=== PATIENT | male | born 1965 | race Caucasian/White ===

== ENCOUNTER 2016-09-29 10:16 | Day surgery (SDC) | payer OTHER ==
[2016-09-29] VITALS (12 sets, daily range): BP systolic 123–143; BP diastolic 77–92; PULSE 57–76; RESP 14–22; O2SAT 94–100
[~2016-09-29] VITALS: Ht 180.3 cm; Wt 84.1 kg
[~2016-09-29 10:16] MED LIST: CeFAZolin 2 Gm/50 mL D5W IV Premix IV ONE; HYDR-3825 PO; SILD100T PO
[2016-09-29] MEDS ORDERED: fentaNYL-PF 50 mCg/mL 2 mL Inj ONE (10:17)
[2016-09-29] MEDS ORDERED: Propofol 10,000 mCg/mL 20 mL Inj ONE (10:17)
[2016-09-29] MEDS ORDERED: Bupivacaine-MPF 0.25%/EPI 30 mL Inj ONE (10:17)
[2016-09-29] MEDS ORDERED: Ondansetron 2 mg/mL 2 mL Inj ONE (10:17)
[2016-09-29] MEDS ORDERED: Succinylcholine Chloride 20 mg/mL 5 mL Inj ONE (10:17)
[2016-09-29] MEDS ORDERED: Ketamine 10 mg/mL 20 mL Inj ONE (10:17)
[2016-09-29] MEDS ORDERED: Dexamethasone 4 mg/mL Inj ONE (10:17)
[2016-09-29] MEDS ORDERED: CeFAZolin 2 Gm/50 mL D5W Duplex Bag IV ONE (10:37)
[2016-09-29] MEDS: Lactated Ringer's 1,000 ML IV SCH ×2 (10:42→11:26)
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
[2016-09-29] MEDS ORDERED: Lactated Ringer's 500 ML IV PRN (11:52)
[2016-09-29] MEDS ORDERED: Lactated Ringer's 1,000 ML IV SCH (11:52)
[2016-09-29] MEDS ORDERED: fentaNYL-PF 50 mCg/mL 2 mL Inj IVPUSH PRN (11:55)
[2016-09-29] MEDS ORDERED: Ondansetron 2 mg/mL 2 mL Inj IVPUSH PRN (11:55)
[2016-09-29] MEDS ORDERED: Phenylephrine 10,000 mCg/mL Inj IVPUSH PRN (11:55)
[2016-09-29] MEDS ORDERED: EPHEDrine Sulfate 50 mg/mL Inj IVPUSH PRN (11:55)
[2016-09-29] MEDS ORDERED: HYDROmorphone 1 mg/mL Inj IVPUSH PRN (11:55)
[2016-09-29] MEDS ORDERED: MetoCLOpramide 5 mg/mL 2 mL Inj IVPUSH PRN (11:55)
[2016-09-29] MEDS ORDERED: Dexamethasone 4 mg/mL Inj IVPUSH PRN (11:55)
[2016-09-29] MEDS ORDERED: Ketorolac 15 mg/mL Inj IVPUSH ONE (13:55)
[2016-09-29] MEDS ORDERED: HYDROcodone-APAP 5-325 mg Tablet PO PRN (13:55)
--- NOTE | 2016-09-29 14:01 | PCM.ORTHOP ---
Orthopedic Operative Report Date of Service: Sep 29, 2016 Pre Operative Diagnosis Left shoulder rotator cuff tear, degenerative labral fraying, biceps tendinitis , subacromial impingement, acromioclavicular joint arthritis Post Operative Diagnosis Same Procedure Left shoulder arthroscopy, rotator cuff repair, biceps tenodesis, subacromial decompression, distal clavicle excision, labral debridement, partial synovectomy Surgeon Surgeon: Terry Mott MD Assistants: Howard Fritz Indication for Procedure Left shoulder rotator cuff tear Findings Left shoulder full thickness rotator cuff tear 2 cm x 1 cm, A3B3C3 biceps tendinitis, 5 mm spur, biceps tendinitis, acromioclavicular joint arthritis, degenerative labral tearing Details of Procedure CUSTOM BOOKBINDER SURGEON: During the operation, the services of physician surgical endoscopist were medically indicated and necessary to provide exposure of the operative site for the surgical procedure and to maintain the limb in a proper position to carry out the operation safely and efficiently. Without the qualified school bus driver/teacher assistant being present, it would have extended the operative procedure and made the procedure technically more difficult to perform. INDICATIONS: The patient is Andrey Snyder who is a 51-year-old male with left shoulder rotator cuff tear. The risks, benefits, and alternatives of surgery were discussed with the patient. The risks included but were not limited to infection, bleeding, damage to vessels and nerves, loss of motion, continued pain, complications due to anesthesia including myocardial infarction, stroke, , etc. The patient stated understanding of the nature of the surgical procedure and gave written and verbal consent to proceed. PROCEDURE: The patient was brought into the operating room and placed supine on the operating room table. An interscalene block was placed in the left shoulder for postoperative pain management, followed by the administration of general anesthesia. . The patient was then placed into the lateral decubitus position with the right side up. An axillary role was placed and the legs were padded as necessary to avoid pressure points. The patient was maintained in position with a beanbag evacuation device. A thorough examination of the left shoulder under anesthesia was performed. The patient had 120 degrees of forward elevation and 110 degrees of abduction. In 90 degrees of abduction there was 40 degrees of external and internal rotation. The shoulder was stable to load-shift testing. The left upper extremity was then prepped and draped in the usual fashion. The arm was suspended with a well-padded sleeve with eight/ten pounds of balanced suspension in the arthroscopic position. A standard posterior portal was made inferior and medial to the posterior corner of the acromion. The incision was made only through skin. The trocar was advanced through the soft tissue with a blunt-tipped obturator. This was inserted into the glenohumeral joint without difficulty. The 4 mm arthroscope was placed through the cannula and attached to the video monitor system. Inflow was achieved using the arthroscopic pump. The pressure was maintained at 35-40 mm of mercury throughout the entire procedure. Once the arthroscope confirmed visualization within the shoulder joint, it was advanced anteriorly into the rotator interval beneath the biceps tendon. A Wissinger robin was then used to create the anterior portal from inside-out. A second anterior stab wound incision was made only through skin and an anterior cannula was placed. A routine arthroscopic survey was begun. Survey: 2 cm x 1 cm full-thickness A3 B3 C3 rotator cuff tear, biceps tendinitis , 5 mm subacromial spur, acromioclavicular joint arthritis, degenerative labral tearing The degenerative labrum was debrided with the shaver. A biceps tenotomy was performed a PDS was used to maintain tension prior to tenotomy. The biceps was tenodesed to the suture anchor anteriorly with the anterior limb of the RTC suture. Sonal procedure: Within the subacromial space there was marked fraying on the undersurface of the coracoacromial ligament consistent with impingement. A decision was thus made to proceed with arthroscopic subacromial decompression. Using an RF wand and a motorized shaver the coracoacromial ligament was recessed from the anterior acromial edge. An orientation trough was made along the lateral margin of the acromion, from the anterior corner back to the posterior margin of the AC joint. A sequential subacromial smoothing was carried out, removing approximately 5 mm of bone corresponding to the preoperative radiographs. Once completed, the AC joint capsule was opened. There was inferior spurring as well as synovitis and arthritic changes at the AC joint and a decision was made to proceed with distal clavicle excision. Using a motorized bur working initially from posteriorly and then anteriorly, the outer 10 mm of the distal clavicle were excised. The arthroscope was then positioned anteriorly within the AC resection site confirming an excellent level of resection. Single anchor supraspinatus repair Attention was then directed to the rotator cuff repair. Using the motorized shaver from both the anterolateral portal and the posterior portal, the free edge of rotator cuff was debrided. The anatomic neck of the tuberosity was then gently abraded, using the motorized shaver and exposing good bone for healing. Via an accessory anterolateral portal, a triple-loaded anchor was inserted, with excellent fixation purchase. The three stitches were then transported across the rotator cuff using a shuttling technique, spacing the sutures equidistantly. Once the sutures were all passed, they were sequentially tied, using SMC knots and alternating half-hitches, which gave excellent loop and knot security. This reduced the rotator cuff back to the anatomic neck. A microfracture was then performed laterally on the tuberosity creating a crimson duvet to aid in tendon healing. The arm was placed through range of motion and the rotator cuff and humeral head moved well as a unit. There was no further evidence for impingement. The subacromial space was irrigated with an additional 500 mL lactated Ringer solution. Excess fluid was drained. 6 biceps tenotomy was performed in the glenohumeral joint and the resting tension was tight with PDS suture. The rotator cuff was incorporated into the biceps tenodesis. The arm was placed through a range of motion and the rotator cuff and humeral head moved well as a unit. There was no further evidence of impingement. The subacromial space was irrigated with an additional liter of lactated Ringer s solution and excess fluid was drained. The arthroscopic portals were closed with #4-0 Nylon and Steri-Strips. A dry sterile dressing was applied, followed by a neutral rotation sling. The patient was awakened in the operating room and transported to the recovery room in satisfactory condition. The patient appeared to tolerate the procedure well. There were no complications noted. Grafts, Implants: Implants-See Implant Record Complications There were no periprocedural complications identified. Condition Stable Anesthetic Administered: GA Catheters: None Output, Estimated Blood Loss: 10 Blood Admin during surgery: No Surgical Cast or Splint: None, Shoulder Immobilizer Surgical Specimen Removed: No Specimen sent to Pathology: No copies to: Terry Mott MD, Christopher L MD Sep 29, 2016 14:01
--- NOTE | 2016-09-29 14:33 | PCM.ANEP1 ---
Post Anesthesia Phase 1 PACU Phase 1 Assessment Date of Service: Sep 29, 2016 Vital Signs Vital Signs Date Time Temp Pulse Resp B/P Pulse Ox O2 Delivery O2 Flow Rate FiO2 09/29/16 14:30 64 14 132/86 96 Room Air 09/29/16 14:20 65 16 130/83 97 Room Air 09/29/16 14:15 36.2 63 16 133/90 96 Room Air 09/29/16 14:05 64 17 139/87 97 Room Air 09/29/16 14:00 64 16 143/92 100 Room Air 09/29/16 13:55 64 16 135/90 100 Simple Mask 9 09/29/16 13:50 36 76 22 127/87 100 Simple Mask 9 09/29/16 10:35 36.6 57 19 123/77 99 Room Air Anesthetic Administered: GA Level of Alertness: Awake, talking Airway Device: Oralpharangeal Airway Lungs: Normal Air Movement Pedrito Lama MD Sep 29, 2016 14:33
--- NOTE | 2016-09-29 14:33 | PCM.ANEP2 ---
Post Anesthesia Evaluation ASA/CMS Post Anesthesia VS in Patient's Normal Range?: Yes Resp Stable; Airway Patent?: Yes CV Function & Hydration Stable: Yes Mental Status Recovered?: Yes Pain control Satisfactory?: Yes N/V Control Satisfactory?: Yes Pedrito Lama MD Sep 29, 2016 14:33
== END 2016-09-29 23:59 | disposition home or self-care (01) ==
LOC: SAS 10:16
PROVIDERS: ATTEND Orthopaedic Surgery
DX: M75.122 Complete rotator cuff tear or rupture of left shoulder, not specified as traumatic (principal); M75.42 Impingement syndrome of left shoulder; M75.22 Bicipital tendinitis, left shoulder; M25.512 Pain in left shoulder; F17.210 Nicotine dependence, cigarettes, uncomplicated
CPT/HCPCS: 23430; 29824; 29826; 29827; 76942; C1713; J0330; J0690; J1100; J1170; J1885; J2405; J3010; J7120